=== PATIENT | female | born 1965 | race African-American/Black ===

== ENCOUNTER 2022-03-09 10:59 | Observation (INO) | payer BC, SELFPAY ==
[2022-03-09] VITALS (9 sets, daily range): BP systolic 127–142; BP diastolic 76–111; PULSE 55–119; RESP 12–20; TEMP 36.4–36.8; O2SAT 98–100; BMI 44.6
--- NOTE | ~2022-03-09 | XR_ITS ---
EXAMINATION: XR chest 2V DATE: 03/09/2022 11:50 INDICATION: Chest pain and cough TECHNIQUE: PA and lateral views of the chest were obtained. COMPARISON: None FINDINGS: The lungs are clear with no focal airspace opacities, pulmonary edema, pleural effusion or pneumothor ax. Borderline heart size. Median sternotomy wires are present. Tortuous thoracic aorta which follows the contour of a midthoracic levoscoliosis with additional lumbar dextroscoliosis with severe spondy losis. Likely cholecystectomy clips in the upper abdomen. IMPRESSION: 1. Borderline heart size. No acute cardiopulmonary disease. Reviewed, dictated and finalized at location B. [facility]
--- NOTE | 2022-03-09 11:00 | ECG_ITS ---
Measurements Intervals [place] Rate: 97 P: 6 NE: 166 QRS: -19 QRSD: 87 T: 34 QT: 353 QTc: 449 Interpretive Statements SINUS RHYTHM SHORT RUN OF VENTRICULAR TACHYCARDIA AND FREQUENT VENTRICULAR PREMATURE COMPLEXES LEFT VENTRICULAR HYPERTROPHY WITH ST-T CHANGE NONSPECIFIC ST & T-WAVE ABNORMALITY- INF/LAT LEADS ABNORMAL ECG NO PREVIOUS ECG AVAILABLE FOR COMPARISON Electronically Signed On 03-09-2022 11:17:58 PERSONNEL OFFICER by Denny Kelley D.O.
[2022-03-09] MEDS: ASPIRIN 81 MG CHEWABLE TABLET 324 MG PO (12:51)
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
--- NOTE | 2022-03-09 13:53 | PC.NURSE ---
Maria Fernanda Kern at bedside for ultrasound IV and blood work.
[2022-03-09 14:04] LABS: Basophils Percent Auto 0.4 % (0.2-1.2); Eosinophils Absolute Auto 0.2 K/mm3 (0-0.3); Eosinophils Percent Auto 1.9 % (0-4.4); Hematocrit 38.5 % (37.0-47.0); Hemoglobin 12.3 g/dL (12.0-15.0); Immature Granulocyte Absolute 0.01 K/mm3 (0.00-0.031); Immature Granulocyte Percent A 0.1 % (0-0.5); Lymphocytes Absolute Auto 3.82 K/mm3 (0.9-3.2); Lymphocytes Percent Auto 44.6 % (18.3-44.2); Mean Corpuscular HGB Conc 31.9 g/dl (32-36); Mean Corpuscular Hemoglobin 30.3 pg (26-34); Mean Corpuscular Volume 94.8 fl (80-100); Mean Platelet Volume 11.1 fl (7.4-10.4); Monocytes Absolute Auto 0.5 K/mm3 (0.1-0.6); Monocytes Percent Auto 6.1 % (2.6-8.5); Neutrophils Percent Auto 46.9 % (45.5-73.1); Platelet Count Result 215 k/mm3 (150-375); Red Blood Count 4.06 M/mm3 (4.2-5.4); Red Cell Distribution Width 13.4 % (11.5-14.5); White Blood Count 8.6 K/mm3 (4.5-10.0)
[2022-03-09] MEDS: MORPHINE SULFATE (*CRX) 4 MG/ML INJ IV PUSH ×2 (14:04→19:35)
[2022-03-09 14:14] LABS: Magnesium 2.1 mg/dL (1.6-2.3)
[2022-03-09 14:16] LABS: Alanine Aminotransferase 25 U/L (6-35); Albumin Level 4.2 g/dL (3.5-5.1); Alkaline Phosphatase 128 U/L (38-126); Anion Gap 8 mmol/L (8-16); Aspartate Amino Transferase 29 U/L (14-36); Bilirubin,Total 0.3 mg/dL (0.2-1.3); Blood Urea Nitrogen 13 mg/dL (7-17); Calcium 8.6 mg/dL (8.4-10.2); Carbon Dioxide 28 mmol/L (22-30); Chloride 105 mmol/L (98-107); Estimated CRCL calculation 94 ml/min; Estimated Glomerular Filt Rate > 60; Glucose 86 mg/dL (65-110); Lipase 87 U/L (23-300); Potassium 4.1 mmol/L (3.4-5.0); Sodium 141 mmol/L (137-145)
[2022-03-09 14:18] LABS: INR 1.1; Prothrombin Time 13.9 Seconds (11.1-14.7)
[2022-03-09 14:19] LABS: Partial Thromboplastin Time 26.7 SECONDS (22.3-36.8)
[2022-03-09 14:27] LABS: Troponin I < 0.012 ng/mL (0.000-0.034)
[2022-03-09 14:35] LABS: D Dimer 0.52 ug/mL (<0.48)
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
[2022-03-09 17:22] LABS: Troponin I < 0.012 ng/mL (0.000-0.034)
[2022-03-09 17:29] LABS: Influenza A QL RT-PCR Negative (Negative); Influenza B QL RT-PCR Negative (Negative); SARS-CoV-2 RNA PCR Negative
--- NOTE | 2022-03-09 19:28 | ECG_ITS ---
Measurements Intervals [place] Rate: 60 P: 16 WA: 147 QRS: -4 QRSD: 93 T: -9 QT: 425 QTc: 426 Interpretive Statements SINUS RHYTHM NONSPECIFIC T-WAVE ABNORMALITY- ANTEROLAT/INF LEADS BORDERLINE ECG COMPARED TO ECG 03/09/2022 11:05:07 SHORT RUN OF VENTRICULAR TACHYCARDIA AND FREQUENT VENTRICULAR PREMATURE COMPLEXES RESOLVED Electronically Signed On 03-09-2022 20:01:38 LIQUEFACTION SUPERVISOR by Denny Kelley D.O.
--- NOTE | 2022-03-09 20:53 | PC.NURSE ---
attempted to call report at this time nurse is not available and will call back
--- NOTE | 2022-03-09 21:42 | ADMGEN ---
This patient, Shavon Hanna, was admitted to IMU Room 206-02. Patient/family oriented to hospital policies and general routines including ID bracelet, bed and alarms, visiting hours, pain management, procedures, bathroom and other care routines, personal items, smoking policy, room service/diet, and visiting hours. Information on how to activate the Rapid Response Team has been discussed. Patient/Family are encouraged to report perceived risks to care and to ask questions if they do not understand what they are told or what they should do.
[2022-03-10] VITALS (17 sets, daily range): BP systolic 117–144; BP diastolic 69–98; PULSE 48–103; RESP 16–24; TEMP 35.8–37; O2SAT 98–100
--- NOTE | 2022-03-10 03:23 | ECG_ITS ---
Measurements Intervals [place] Rate: 88 P: -2 HI: 152 QRS: -15 QRSD: 87 T: -15 QT: 369 QTc: 449 Interpretive Statements SINUS RHYTHM SHORT RUN OF VENTRICULAR TACHYCARDIA, VENTRICULAR COUPLET AND VENTRICULAR PREMATURE COMPLEXES DELAYED PRECORDIAL R/S TRANSITION LEFT VENTRICULAR HYPERTROPHY WITH ST-T CHANGE BORDERLINE T WAVE ABNORMALITY- ANTEROLATERAL LEADS ABNORMAL ECG COMPARED TO ECG 03/09/2022 19:34:30 SHORT RUN OF VENTRICULAR TACHYCARDIA, VENTRICULAR COUPLET AND VENTRICULAR PREMATURE COMPLEXES NOW PRESENT Electronically Signed On 03-10-2022 12:07:01 DAIRY AND FOOD LABORATORY ASSISTANT by Denny Kelley D.O.
[2022-03-10] MEDS: ACETAMINOPHEN 325 MG TABLET 650 MG PO (04:09)
[2022-03-10 07:46] LABS: Hematocrit 36.4 % (37.0-47.0); Hemoglobin 11.6 g/dL (12.0-15.0); Mean Corpuscular HGB Conc 31.9 g/dl (32-36); Mean Corpuscular Hemoglobin 30.7 pg (26-34); Mean Corpuscular Volume 96.3 fl (80-100); Mean Platelet Volume 11.2 fl (7.4-10.4); Platelet Count Result 186 k/mm3 (150-375); Red Blood Count 3.78 M/mm3 (4.2-5.4); Red Cell Distribution Width 13.3 % (11.5-14.5); White Blood Count 6.4 K/mm3 (4.5-10.0)
[2022-03-10 07:58] LABS: Alanine Aminotransferase 19 U/L (6-35); Albumin Level 3.4 g/dL (3.5-5.1); Alkaline Phosphatase 93 U/L (38-126); Anion Gap 5 mmol/L (8-16); Aspartate Amino Transferase 21 U/L (14-36); Bilirubin,Total 0.2 mg/dL (0.2-1.3); Blood Urea Nitrogen 14 mg/dL (7-17); Calcium 8.1 mg/dL (8.4-10.2); Carbon Dioxide 30 mmol/L (22-30); Chloride 102 mmol/L (98-107); Cholesterol 142 mg/dL (0-200); Estimated CRCL calculation 107 ml/min; Estimated Glomerular Filt Rate > 60; Glucose 97 mg/dL (65-110); HDL Direct 40 mg/dL; Magnesium 1.9 mg/dL (1.6-2.3); Potassium 3.8 mmol/L (3.4-5.0); Sodium 137 mmol/L (137-145); Triglycerides 74 mg/dL (<150)
--- NOTE | 2022-03-10 08:00 | ECHO_ITS ---
Patient Info Name: Shavon Hanna Age: 56 years : 1965 Gender: Female Ht: 66 in Wt: 276 lbs BSA: 2.48 m2 HR: 103 bpm BP: 128 / 87 mmHg Heart Rhythm: Sinus Rhythm, Bradycardia Technical Quality: Fair Exam Date: 03/10/2022 8:15 AM Exam Location: [facility] Pulmonary Patient Status: Inpatient Admit Date: 03/09/2022 Staff Ordering Physician: Emily Cheek PA-C Porcelain Finisher: Laura Garrett RDCS Attending Provider: Erma Narvaez DO Referring Physician: Ham GREER; Exam Type: CA echo dop color flow w con Study Info Indications R07.9 - Chest pain, unspecified Complete two-dimensional, color flow and Doppler transthoracic echocardiogram is performed with contrast to opacify the left ventricle and to improve the deliniation of the left ventricle endocardial borders. Contrast/Agitated Saline Contrast/Ag. Saline: Definity Amount: 3.00 ml Administered By: Laura Garrett RDCS Existing IV Access: Yes IV Access Condition: patent with no signs of infiltration Summary 1. Technically difficult study with limited views. Several views foreshortened. Definity contrast administration. Regional wall motion assessment limited due to poor endomyocardial border definition in several views. 2. Left ventricular chamber dimension is normal. 3. Left ventricular systolic function is normal, estimated at 55%. 4. There is mildly increased left ventricular wall thickness. 5. The left ventricular diastolic function is grade II diastolic dysfunction. 6. There is no aortic valve stenosis. 7. There is mild mitral valve regurgitation. 8. There is trace tricuspid valve regurgitation. 9. No pulmonary hypertension, estimated pulmonary arterial systolic pressure is 23 mmHg. Left Ventricle Left ventricular chamber dimension is normal. Left ventricular systolic function is normal, estimated at 55%. There is mildly increased left ventricular wall thickness. The left ventricular diastolic function is grade II diastolic dysfunction. Technically difficult study with limited views. Several views foreshortened. Definity contrast administration. Regional wall motion assessment limited due to poor endomyocardial border definition in several views. Right Ventricle Right ventricular chamber dimension is normal. Right ventricular systolic function is normal. Left Atria Left atrial chamber dimension is normal. Right Atria Right atrial chamber dimension is normal. Aortic Valve The aortic valve is probable trileaflet. There is no aortic valve stenosis. There is no aortic valve regurgitation. Pulmonic Valve The pulmonic valve is not well visualized. There is mild pulmonic regurgitation. Mitral Valve The mitral valve has normal leaflets. There is mild mitral valve regurgitation. Tricuspid Valve The tricuspid valve leaflets are normal. There is trace tricuspid valve regurgitation. No pulmonary hypertension, estimated pulmonary arterial systolic pressure is 23 mmHg. Pericardium/Pleural The pericardium appears normal. There is no pericardial effusion. Inferior Vena Cava Normal inferior vena cava with >50% collapse upon inspiration consistent with normal right atrial pressure, 5 mmHg. Aorta The aortic root size at the sinus of Valsalva is normal. The prox ascending aorta size is normal. There is mild aortic atherosclerosis. Left Ventricular Outflow Tract
[2022-03-10 08:10] LABS: LDL Cholesterol Direct 71 mg/dL
[2022-03-10 08:23] LABS: Troponin I < 0.012 ng/mL (0.000-0.034)
[2022-03-10] MEDS: lisinopriL 2.5 MG TABLET PO (08:57)
[2022-03-10] MEDS: atenoloL 25 MG TABLET PO (08:57)
[2022-03-10] MEDS: ENOXAPARIN 40 MG/0.4 ML SYRINGE SUB-Q (08:58)
[2022-03-10] MEDS: PERFLUTREN LIPID MICROSPHERES 1.5 ML VIAL DILUTED TO 10 ML TOTAL VOLUME IV PUSH (09:01)
--- NOTE | 2022-03-10 09:01 | IVDEFINITY ---
Prior to administration of IV Definity the patient was educated on the risks and benefits of the imaging enhancing agent including potential adverse side effects. The patient verbalized understanding. Allergies were verified. No exclusion criteria were identified and at least one of the following inclusion criteria were met: 1) physician request, 2) patient technically difficult to image (per the [place] [employer]ocardi[employer] guidelines of two or more segments not discernable within the apical view), or 3) questionable left ventricular function. ?
[2022-03-10] MEDS: ACETAMINOPHEN 500 MG TABLET 1000 MG PO (10:04)
--- NOTE | 2022-03-10 12:20 | PM.IMPN ---
Progress Note: A&P Assessment and Plan (1) Chest pain: Code(s): R07.9 - Chest pain, unspecified Status: Acute Assessment and Plan: Workup unrevealing thus far. Cardiac enzymes negative. Cardiology has been consult. Await further recommendations. Patient is complaining of ongoing chest pain. (2) Hypertension: Code(s): I10 - Essential (primary) hypertension Status: Acute Assessment and Plan: Monitor (3) Hypothyroidism: Code(s): E03.9 - Hypothyroidism, unspecified Status: Acute Assessment and Plan: stable (4) Tobacco dependence: Code(s): F17.200 - Nicotine dependence, unspecified, uncomplicated Status: Acute Assessment and Plan: cessation counseled. Subjective Date/time seen: 03/10/22 12:20 Patient still complaining of chest pain today. Exam Const: Other: Well-developed, nontoxic-appearing female sitting up in bed. Weight: 125.5 kilograms. BMI: 44.7. HENMT: Other: Normocephalic, atraumatic. Nares patent bilaterally. Oral mucosa moist. Eyes: Other: Pupils are reactive. Extraocular motions intact. Sclerae anicteric. She is wearing glasses. Neck: Other: Supple. No JVD or carotid bruits. Chest: Other: No tenderness to palpation over the chest wall. Healed sternotomy scar. Resp: Other: Respirations are nonlabored. Lungs are clear to auscultation. Cardio: Other: Regular rate rhythm with normal S1-S2. GI: Other: Abdomen is soft, nontender, and nondistended with positive bowel sounds. Skin: Other: Warm and dry. Neuro: Other: Alert. Cranial nerves 2-12 are grossly intact. No gross focal deficits to casual conversation. Extrem: Other: No cyanosis or clubbing. Trace haydee ankle edema bilaterally. No palpable or knots or cords. Negative Fer sign bilaterally. Psych: Other: Pleasant and cooperative. Appropriate mood and affect. Objective Data Vital Signs Vital Signs: Vital Signs - 24 hr 03/09/22 14:27 03/09/22 13:06 03/09/22 14:01 Temperature Pulse Rate 62 67 73 Respiratory Rate 20 14 20 Blood Pressure 137/76 137/76 Pulse Oximetry 98 100 Oxygen Delivery 03/09/22 14:31 03/09/22 16:31 03/09/22 21:29 Temperature Pulse Rate 63 65 Respiratory Rate 20 12 Blood Pressure 133/83 127/84 Pulse Oximetry Oxygen Delivery Room Air 03/09/22 21:29 03/09/22 22:00 03/09/22 23:38 Temperature 97.6 F 97.6 F Pulse Rate 55 L 68 80 Respiratory Rate 18 18 Blood Pressure 137/86 136/86 Pulse Oximetry 100 98 Oxygen Delivery 03/10/22 00:00 03/10/22 00:00 03/10/22 02:00 Temperature Pulse Rate 75 99 Respiratory Rate Blood Pressure Pulse Oximetry 98 Oxygen Delivery Room Air 03/10/22 04:00 03/10/22 04:00 03/10/22 04:00 Temperature 98.6 F Pulse Rate 93 103 H Respiratory Rate 20 Blood Pressure 128/87 Pulse Oximetry 98 Oxygen Delivery Room Air 03/10/22 08:01 03/10/22 08:57 03/10/22 09:55 Temperature 96.5 F L Pulse Rate 63 59 L Respiratory Rate 22 H Blood Pressure 142/74 H Pulse Oximetry 100 100 Oxygen Delivery Room Air 03/10/22 08:00 03/10/22 08:00 03/10/22 10:00 Temperature Pulse Rate 62 53 L Respiratory Rate Blood Pressure Pulse Oximetry Oxygen Delivery Room Air 03/10/22 11:48 Temperature 96.7 F L Pulse Rate 57 L Respiratory Rate 24 H Blood Pressure 140/71 Pulse Oximetry 100 Oxygen Delivery Intake/Output Intake/Output: Intake & Output 03/07/22 03/08/22 03/09/22 03/10/22 23:59 23:59 23:59 23:59 Output Total 400 Balance -400 Meds/Results Medications: Active Medications Generic Name Dose Route Start Last Admin Trade Name Freq PRN Reason Stop Dose Admin Acetaminophen 1,000 mg 03/10/22 09:56 03/10/22 10:04 Acetaminophen 500 Mg Tablet PO 1,000 mg Q6H PRN Administration Pain or Fever Atenolol 25 mg 03/10/22 09:00 03/10/22 08:57 Atenolol 25 Mg Ta
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
[2022-03-10 14:54] LABS: Amylase 38 U/L (30-110); Lipase 39 U/L (23-300)
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
[2022-03-10 17:10] LABS: CRP 0.6 mg/dL (<1.0)
[2022-03-10 17:40] LABS: Erythrocyte Sedimentation Rate 23 mm/hr (0-20)
[2022-03-11] VITALS (7 sets, daily range): BP systolic 106–129; BP diastolic 76–95; PULSE 52–83; RESP 18–22; TEMP 36–36.1; O2SAT 96–100
[2022-03-11] MEDS: lisinopriL 2.5 MG TABLET PO (10:43)
[2022-03-11] MEDS: ACETAMINOPHEN 500 MG TABLET 1000 MG PO (10:43)
--- NOTE | 2022-03-11 11:14 | PM.IMPN ---
Progress Note: A&P Assessment and Plan (1) Chest pain: Code(s): R07.9 - Chest pain, unspecified Status: Acute Assessment and Plan: Workup unrevealing thus far. Cardiac enzymes negative. Cardiology has been consult. not likely cardiac (2) Hypertension: Code(s): I10 - Essential (primary) hypertension Status: Acute Assessment and Plan: Monitor (3) Hypothyroidism: Code(s): E03.9 - Hypothyroidism, unspecified Status: Acute Assessment and Plan: stable (4) Tobacco dependence: Code(s): F17.200 - Nicotine dependence, unspecified, uncomplicated Status: Acute Assessment and Plan: cessation counseled. (5) Epigastric abdominal pain: Code(s): R10.13 - Epigastric pain Status: Acute Assessment and Plan: gi to perform egd Subjective Date/time seen: 03/11/22 11:14 no complaints Exam Const: Other: Well-developed, nontoxic-appearing female sitting up in bed. Weight: 125.5 kilograms. BMI: 44.7. HENMT: Other: Normocephalic, atraumatic. Nares patent bilaterally. Oral mucosa moist. Eyes: Other: Pupils are reactive. Extraocular motions intact. Sclerae anicteric. She is wearing glasses. Neck: Other: Supple. No JVD or carotid bruits. Chest: Other: No tenderness to palpation over the chest wall. Healed sternotomy scar. Resp: Other: Respirations are nonlabored. Lungs are clear to auscultation. Cardio: Other: Regular rate rhythm with normal S1-S2. GI: Other: Abdomen is soft, nontender, and nondistended with positive bowel sounds. Skin: Other: Warm and dry. Neuro: Other: Alert. Cranial nerves 2-12 are grossly intact. No gross focal deficits to casual conversation. Extrem: Other: No cyanosis or clubbing. Trace haydee ankle edema bilaterally. No palpable or knots or cords. Negative Fer sign bilaterally. Psych: Other: Pleasant and cooperative. Appropriate mood and affect. Objective Data Vital Signs Vital Signs: Vital Signs - 24 hr 03/10/22 11:48 03/10/22 12:00 03/10/22 12:00 Temperature 96.7 F L Pulse Rate 57 L 48 L Respiratory Rate 24 H Blood Pressure 140/71 Pulse Oximetry 100 Oxygen Delivery Room Air 03/10/22 14:00 03/10/22 16:31 03/10/22 16:00 Temperature 96.8 F L Pulse Rate 48 L 58 L 71 Respiratory Rate 20 Blood Pressure 144/98 H Pulse Oximetry 100 Oxygen Delivery 03/10/22 19:55 03/10/22 23:11 03/10/22 23:53 Temperature 97.8 F 97.3 F L Pulse Rate 78 71 Respiratory Rate 16 16 Blood Pressure 139/90 117/69 Pulse Oximetry 99 99 99 Oxygen Delivery Room Air 03/10/22 20:00 03/10/22 20:00 03/11/22 00:00 Temperature Pulse Rate 68 83 Respiratory Rate Blood Pressure Pulse Oximetry 99 Oxygen Delivery Room Air 03/11/22 04:00 03/11/22 08:13 Temperature 96.9 F L Pulse Rate 55 L 79 Respiratory Rate 20 Blood Pressure 112/95 H Pulse Oximetry 100 Oxygen Delivery Intake/Output Intake/Output: Intake & Output 03/08/22 03/09/22 03/10/22 03/11/22 23:59 23:59 23:59 23:59 Intake Total 450 400 Output Total 400 Balance 50 400 Meds/Results Medications: Active Medications Generic Name Dose Route Start Last Admin Trade Name Freq PRN Reason Stop Dose Admin Acetaminophen 1,000 mg 03/10/22 09:56 03/11/22 10:43 Acetaminophen 500 Mg Tablet PO 1,000 mg Q6H PRN Administration Pain or Fever Enoxaparin Sodium 40 mg 03/10/22 09:00 03/11/22 10:37 Enoxaparin 40 Mg/0.4 Ml Syringe SUB-Q Not Given DAILY [facility] Lisinopril 2.5 mg 03/10/22 09:00 03/11/22 10:43 Lisinopril 2.5 Mg Tablet PO 2.5 mg DAILY DARÍO Administration Radiology Results: ITS Impressions Chest X-Ray 03/09/22 11:51 IMPRESSION: 1. Borderline heart size. No acute cardiopulmonary disease. Labs Labs: Laboratory Results - last 24 hr 03/10/22 03/10/22 03/10/22 07:34 07:40 15:45 ESR 23 H C-R
--- NOTE | 2022-03-11 11:58 | PM.PNCARD ---
Progress Note: A&P Assessment and Plan (1) Chest pain: Code(s): R07.9 - Chest pain, unspecified Status: Acute Assessment and Plan: Symptoms are highly atypical, intermittent predominately brought on after eating or drinking associated with increased abdominal pain and watery diarrhea. Symptoms are nonexertional but I have also more recently without meals as well prompting presentation increasing in severity. She has ruled out for myocardial infarction with negative serial cardiac enzymes. EKG without ischemic changes. 2D echocardiogram without focal wall motion abnormality, preserved LV systolic function or significant valve pathology. Discussed at length noninvasive ischemic evaluation. Recommendations as appropriate to follow after review of EGD and patient clinical status. (2) Frequent PVCs: Code(s): I49.3 - Ventricular premature depolarization Status: Acute Assessment and Plan: Frequent PVCs versus aberrant atrial ectopic conduction with RBBB morphology on telemetry and EKG. apnea link suggestive of clinically significant degree of sleep apnea. Outpatient evaluation. AHI 13. This may contribute to additional arrhythmia risk particularly overnight. Mildly elevated sedimentation rate, negative CRP. Beta-jeanette therapy discontinued out of concern for bradycardia induced ventricular arrhythmias. explained I did not expect this to completely resolve noted ectopy but will need to monitor response a nonetheless given her significant bradycardia on beta-jeanette therapy will hold for now. All questions answered to her satisfaction. Patient verbalized understanding. No previous supportive near-syncope or syncope. TSH normal 1.410. potassium magnesium stable. (3) Abdominal pain: Code(s): R10.9 - Unspecified abdominal pain Status: Acute Assessment and Plan: Symptoms improved overall but not resolved. GI workup underway. Appreciate the recommendations.As above, given constellation of symptoms with upper epigastric, low chest reproducible on exam in association with meals and watery diarrhea concern for GI etiology. (4) Hypertension: Code(s): I10 - Essential (primary) hypertension Status: Acute Assessment and Plan: Elevated but fair control at this time. Tolerating lisinopril 2.5 mg daily. (5) Alcohol use: Code(s): Z78.9 - Other specified health status Status: Acute Assessment and Plan: Patient must reduce alcohol intake as counseled. Discussed physical and cardiovascular potential complications with alcohol use. DVT prophylaxis. (6) Morbid obesity with BMI of 40.0-44.9, adult: Code(s): E66.01 - Morbid (severe) obesity due to excess calories; Z68.41 - Body mass index [BMI] 40.0-44.9, adult Status: Acute Assessment and Plan: Last modification counseling. Check apnea link overnight to screen for KOLE. (7) Tobacco dependence: Code(s): F17.200 - Nicotine dependence, unspecified, uncomplicated Status: Acute Assessment and Plan: Immediate and absolute smoking cessation counseling. Subjective Date/time seen: date of service:03/11/22 11:58 Follow-up for atypical chest pain /abdominal pain, PVCs, palpitations patient denies palpitations. States she feels better overall occasional mild epigastric discomfort. NPO for anticipated EGD later today. No new issues overnight. No fevers or chills. Review of Systems Review of Systems: All systems reviewed & are unremarkable except as noted in HPI and below Constitutional: Constitutional: Reports as per HPI and Reports no additional constitutional complaints Eyes: Eyes: Reports as per HPI and Reports no additional eye complaints ENT: Reports system reviewed and no additional complaints, except as documented and Reports as per HPI Cardiovascular: Cardiovascular: Reports as per HPI and Reports no additional cardiovascular complaints Respir
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
[2022-03-11] MEDS: LACTATED RINGERS 1,000 ML 150 ML IV CONT (13:47)
--- NOTE | 2022-03-11 15:57 | PM.DS ---
DS: Admitting Diagnosis Discharge Date 03.11.22 Admitting Diagnosis chaest pain DS: Discharge Diagnosis Discharge Diagnosis (1) Chest pain: Code(s): R07.9 - Chest pain, unspecified Status: Acute Assessment and Plan: Workup unrevealing thus far. Cardiac enzymes negative. Cardiology has been consult. not likely cardiac (2) Hypertension: Code(s): I10 - Essential (primary) hypertension Status: Acute Assessment and Plan: Monitor (3) Hypothyroidism: Code(s): E03.9 - Hypothyroidism, unspecified Status: Acute Assessment and Plan: stable (4) Tobacco dependence: Code(s): F17.200 - Nicotine dependence, unspecified, uncomplicated Status: Acute Assessment and Plan: cessation counseled. (5) Epigastric abdominal pain: Code(s): R10.13 - Epigastric pain Status: Acute Assessment and Plan: gi to perform egd DS: Summary Hospital Course Hospital Course: admitted for cp, carreon unrevealing, no cardiac etiology per cardiology gi was consulted and egd performed, ppi recommended she can be dc to fu with pcp and gi Time Spent with Patient Time attestation: Total time spent providing and/or coordinating discharge services: Exam Const: Other: Well-developed, nontoxic-appearing female sitting up in bed. Weight: 125.5 kilograms. BMI: 44.7. HENMT: Other: Normocephalic, atraumatic. Nares patent bilaterally. Oral mucosa moist. Eyes: Other: Pupils are reactive. Extraocular motions intact. Sclerae anicteric. She is wearing glasses. Neck: Other: Supple. No JVD or carotid bruits. Chest: Other: No tenderness to palpation over the chest wall. Healed sternotomy scar. Resp: Other: Respirations are nonlabored. Lungs are clear to auscultation. Cardio: Other: Regular rate rhythm with normal S1-S2. GI: Other: Abdomen is soft, nontender, and nondistended with positive bowel sounds. Skin: Other: Warm and dry. Neuro: Other: Alert. Cranial nerves 2-12 are grossly intact. No gross focal deficits to casual conversation. Extrem: Other: No cyanosis or clubbing. Trace haydee ankle edema bilaterally. No palpable or knots or cords. Negative Fer sign bilaterally. Psych: Other: Pleasant and cooperative. Appropriate mood and affect. DS: Data Data Completed and Pending Labs on day of discharge: Labs from last 24 hours 03/10/22 03/10/22 03/10/22 15:45 15:45 07:40 ESR 23 H C-Reactive Protein 0.6 TSH (Reflex) 1.410 Discharge Plan Discharge Attending physician on discharge: Khoa Kohler Consulting providers: Valentín Yee ; Filiberto Jaquez Discharging Clinician: Khoa Kohler Patient Disposition: Home, Self-Care Activity: as tolerated Diet: as tolerated Patient Instructions: Antibiotic Form, How to Stop Smoking (DC) Stand Alone Forms: General Discharge Information Follow-up/Referrals: PHYSICIAN NOT ON STAFF,NONSTAFF [Primary Care Provider] - Discharge Medications: New pantoprazole [Protonix] 40 mg tablet,delayed release (DR/EC) 40 mg PO QAM 28 Days Qty: 28 0RF Continued atenolol 25 mg tablet 25 mg PO DAILY lisinopril 2.5 mg tablet 2.5 mg PO DAILY clindamycin HCl 300 mg capsule 300 mg PO TID Date of admission: 03/09/22 15:40 Primary Care Provider: PHYSICIAN NOT ON STAFF,NONSTAFF Admitting Provider: Erma Narvaez Attending physician on admission: Erma Narvaez Condition: Stable
== END 2022-03-11 17:06 | disposition home or self-care (01) ==
LOC: ANHED 13:57 → ANHIMU 22:06
PROVIDERS: Emergency Medicine; Internal Medicine Cardiovascular Disease; Internal Medicine Gastroenterology; Physician Assistant; Admitting Provider Student in an Organized Health Care Education/Training Program; Emergency Provider Emergency Medicine; Visit Provider Chiropractor
PROC: 0DJ08ZZ Inspection of Upper Intestinal Tract, Via Natural or Artificial Opening Endoscopic (ICD-10-PCS; CPT 43235; principal; 2022-03-11 15:15)
DX: K29.00 Acute gastritis without bleeding (principal); R07.9 Chest pain, unspecified; I11.9 Hypertensive heart disease without heart failure; E03.9 Hypothyroidism, unspecified; R00.0 Tachycardia, unspecified; I49.3 Ventricular premature depolarization; R94.31 Abnormal electrocardiogram [ECG] [EKG]; I34.0 Nonrheumatic mitral (valve) insufficiency; K58.9 Irritable bowel syndrome, unspecified; Z20.822 Contact with and (suspected) exposure to COVID-19; E66.01 Morbid (severe) obesity due to excess calories; Z68.41 Body mass index [BMI] 40.0-44.9, adult; F17.210 Nicotine dependence, cigarettes, uncomplicated; F10.90 Alcohol use, unspecified, uncomplicated; Z79.899 Other long term (current) drug therapy; Z87.828 Personal history of other (healed) physical injury and trauma; Z82.49 Family history of ischemic heart disease and other diseases of the circulatory system
CPT/HCPCS: 43239; 36415; 71046; 80053; 80061; 82150; 83690; 83735; 84443; 84484; 85025; 85027; 85380; 85610; 85652; 85730; 86140; 87081; 87636; 93005; 94762; 96372; 96374; 96375; 96376; 99285; A9270; C8929; G0378; J1650; J2270; J2704; J7120; Q9957